=== PATIENT | female | born 1985 | race Caucasian/White ===

== ENCOUNTER 2020-03-19 12:30 | Observation (INO) | payer OTHER ==
[2020-03-19 13:22] VITALS: BP 159/105
[2020-03-19] MEDS ORDERED: BETAMETHASONE SOLUSPAN 6 MG/ML 5 ML VIAL IM ONE (13:30)
[2020-03-19] MEDS ORDERED: NIFEdipine 10 MG CAPSULE PO ONE ×3 (13:45→16:30)
[2020-03-19] MEDS ORDERED: NIFE60TA85 PO (13:54)
[2020-03-19] MEDS ORDERED: PREN-134 PO (13:54)
[2020-03-19] MEDS ORDERED: METHY250 PO (13:54)
[2020-03-19] MEDS ORDERED: DOXY1TAB3 PO (13:54)
[2020-03-19 14:08] LABS: BASOPHILS % (AUTO) 0.4 % (0.0-2.0); EOSINOPHILS % (AUTO) 0.2 % (1.0-6.0); HEMATOCRIT 32.2 % (36-46); HEMOGLOBIN 11.4 g/dL (12.0-16.0); LYMPHOCYTES % (AUTO) 20.7 % (22.0-44.0); MEAN CORPUSCULAR HEMOGLOBIN 32.5 pg (26.0-34.0); MEAN CORPUSCULAR HGB CONC 35.4 G/dL (31.0-37.0); MEAN CORPUSCULAR VOLUME 92 fL (80-100); MONOCYTES # (AUTO) 0.8 K/uL (0.1-1.0); MONOCYTES % (AUTO) 7.8 % (2.0-9.0); NEUTROPHILS % (AUTO) 70.9 % (40.0-70.0); PLATELET COUNT (AUTO)-OB 177 K/uL (150-450); RED BLOOD CELL COUNT(AUTO) 3.51 MIL/uL (4.00-5.20)
[2020-03-19 14:20] LABS: ANION GAP 5 mmol/L (8-16); CALCIUM, TOTAL 8.3 mg/dL (8.8-10.5); CARBON DIOXIDE 24 mmol/L (22-29); CHLORIDE 101 mmol/L (98-107); CREATININE 0.84 mg/dL (0.60-1.30); GLOMERULAR FILTR. RATE CALC > 60 mL/min (>60); GLUCOSE,RANDOM 97 mg/dL (70-110); POTASSIUM 4.3 mmol/L (3.5-5.1); SODIUM SERUM 130 mmol/L (136-145); UREA NITROGEN, BLOOD 19 mg/dL (7-18)
[2020-03-19 14:26] LABS: ALANINE AMINOTRANSFERASE 63 U/L (12-78); ALBUMIN 1.8 g/dL (3.4-5.0); ALKALINE PHOSPHATASE 227 U/L (46-116); ASPARTATE AMINOTRANSFERASE 55 U/L (15-37); BILIRUBIN,TOTAL 0.2 mg/dL (0.1-1.0); TOTAL PROTEIN, SERUM 6.2 g/dL (6.4-8.2)
[2020-03-19] MEDS: DEXTROSE 5%-LACTATED RINGERS 1,000 ML IV SCH ×2 (14:39→21:29)
[2020-03-19 15:20] LABS: CREATININE,URINE RANDOM 67.2 mg/dL (30.0-125.0)
[2020-03-19] MEDS ORDERED: LABETALOL HCL 5 MG/ML 20 ML VIAL IVP STA (15:42)
[2020-03-19] MEDS ORDERED: CALCIUM GLUCONATE 100 MG/ML 10 ML IVP PRN (16:45)
[2020-03-19] MEDS ORDERED: MAGNESIUM SULFATE 500 ML IV SCH (16:45)
[2020-03-19] MEDS: NIFEdipine 10 MG CAPSULE PO SCH ×3 (19:02→23:56)
[2020-03-19] MEDS: METHYLDOPA 250 MG TABLET PO SCH (19:39)
[2020-03-19] MEDS ORDERED: ACETAMINOPHEN 500 MG TABLET PO ONE (20:30)
[2020-03-20] MEDS: METHYLDOPA 250 MG TABLET PO SCH ×2 (01:13→12:16)
[2020-03-20] MEDS: NIFEdipine 10 MG CAPSULE PO SCH ×2 (02:09→04:05)
[2020-03-20 05:44] LABS: BASOPHILS % (AUTO) 0.1 % (0.0-2.0); EOSINOPHILS % (AUTO) 0 % (1.0-6.0); HEMATOCRIT 33.1 % (36-46); HEMOGLOBIN 11.6 g/dL (12.0-16.0); LYMPHOCYTES # (AUTO) 1.7 K/uL (1.0-4.8); LYMPHOCYTES % (AUTO) 11.9 % (22.0-44.0); MEAN CORPUSCULAR HEMOGLOBIN 32.2 pg (26.0-34.0); MEAN CORPUSCULAR VOLUME 92 fL (80-100); MONOCYTES # (AUTO) 0.4 K/uL (0.1-1.0); MONOCYTES % (AUTO) 2.8 % (2.0-9.0); NEUTROPHILS # (AUTO) 12.4 K/uL (1.8-7.7); PLATELET COUNT (AUTO)-OB 188 K/uL (150-450); RED CELL DISTRIBUTION WIDTH 14.4 % (11.5-14.5)
[2020-03-20] MEDS ORDERED: LABETALOL HCL 5 MG/ML 20 ML VIAL IVP ONE (06:00)
[2020-03-20 06:02] LABS: NEUTROPHILS % (AUTO) 85.2 % (40.0-70.0)
[2020-03-20 06:17] VITALS: BP 147/92
[2020-03-20 06:30] LABS: D-DIMER 2.35 mg/L FEU (0.00-0.50); INR 0.9 (0.9-1.1); PROTHROMBIN TIME 9.4 SEC (9.4-11.6)
[2020-03-20 06:34] LABS: ALANINE AMINOTRANSFERASE 62 U/L (12-78); ALKALINE PHOSPHATASE 229 U/L (46-116); ANION GAP 9 mmol/L (8-16); ASPARTATE AMINOTRANSFERASE 55 U/L (15-37); BILIRUBIN,TOTAL 0.2 mg/dL (0.1-1.0); CALCIUM, TOTAL 8.3 mg/dL (8.8-10.5); CARBON DIOXIDE 21 mmol/L (22-29); CHLORIDE 102 mmol/L (98-107); CREATININE 0.86 mg/dL (0.60-1.30); GLOMERULAR FILTR. RATE CALC > 60 mL/min (>60); GLUCOSE,RANDOM 136 mg/dL (70-110); POTASSIUM 5.3 mmol/L (3.5-5.1); SODIUM SERUM 132 mmol/L (136-145); TOTAL PROTEIN, SERUM 6.4 g/dL (6.4-8.2); UREA NITROGEN, BLOOD 19 mg/dL (7-18); URIC ACID 7.9 mg/dL (2.6-7.2)
[2020-03-20] MEDS: DEXTROSE 5%-LACTATED RINGERS 1,000 ML IV SCH (07:42)
[2020-03-20] MEDS ORDERED: BETAMETHASONE SOLUSPAN 6 MG/ML 5 ML VIAL IM ONE (08:00)
[2020-03-20] MEDS ORDERED: NIFEdipine 60 MG ER TABLET PO SCH (09:00)
[2020-03-20] MEDS ORDERED: LABETALOL HCL 200 MG TABLET PO ONE (10:30)
[2020-03-21 00:47] LABS: COLLECTION TIME,URINE 24 HR
[2020-03-21 00:57] LABS: TPROTEIN TIMED,URINE 300 mg/dL; TPROTEIN URINE, 24HRS COLL 6300 mg/24Hr (0-165)
== END 2020-03-20 13:35 | disposition home or self-care (01) ==
LOC: 4S 12:30
PROVIDERS: ADMIT Obstetrics & Gynecology; ATTEND Obstetrics & Gynecology
DX: Z03.818 Encounter for observation for suspected exposure to other biological agents ruled out (principal); O16.3 Unspecified maternal hypertension, third trimester; O14.93 Unspecified pre-eclampsia, third trimester; Z3A.28 28 weeks gestation of pregnancy
CPT/HCPCS: 36415 ×2; 76811; 80053 ×2; 81001; 81050; 82570; 83735; 84156 ×2; 84550 ×2; 85025 ×2; 85379; 85384; 85610; 85730; 87086; 87635; 96365; 96366 ×2; 96372 ×2; 96375; 96376; G0378; J0702 ×2; J3475; J3490 ×2; X7700 ×2

== ENCOUNTER 2020-03-26 14:05 | Inpatient (IN) | payer OTHER ==
[~2020-03-26] VITALS: Ht 161 cm; Wt 65.3 kg
[~2020-03-26 14:05] MED LIST: DOXY1TAB3 PO; METHY250 PO; NIFE60TA85 PO; PREN-134 PO
[2020-03-26] MEDS ORDERED: BETAMETHASONE SOLUSPAN 6 MG/ML 5 ML VIAL IM ONE (15:00)
[2020-03-26 15:07] LABS: BASOPHILS % (AUTO) 0.7 % (0.0-2.0); EOSINOPHILS % (AUTO) 0.3 % (1.0-6.0); HEMATOCRIT 30.3 % (36-46); HEMOGLOBIN 10.4 g/dL (12.0-16.0); LYMPHOCYTES # (AUTO) 2.7 K/uL (1.0-4.8); LYMPHOCYTES % (AUTO) 22.9 % (22.0-44.0); MEAN CORPUSCULAR HEMOGLOBIN 31.6 pg (26.0-34.0); MEAN CORPUSCULAR HGB CONC 34.3 G/dL (31.0-37.0); MEAN CORPUSCULAR VOLUME 92 fL (80-100); MONOCYTES % (AUTO) 8.3 % (2.0-9.0); NEUTROPHILS # (AUTO) 7.9 K/uL (1.8-7.7); NEUTROPHILS % (AUTO) 67.8 % (40.0-70.0); PLATELET COUNT (AUTO) 204 K/uL (150-450); RED BLOOD CELL COUNT(AUTO) 3.29 MIL/uL (4.00-5.20); RED CELL DISTRIBUTION WIDTH 14.3 % (11.5-14.5)
[2020-03-26 15:16] LABS: ANION GAP 10 mmol/L (8-16); CALCIUM, TOTAL 7.8 mg/dL (8.8-10.5); CARBON DIOXIDE 22 mmol/L (22-29); CHLORIDE 106 mmol/L (98-107); CREATININE 0.88 mg/dL (0.60-1.30); GLOMERULAR FILTR. RATE CALC > 60 mL/min (>60); GLUCOSE,RANDOM 86 mg/dL (70-110); POTASSIUM 4.6 mmol/L (3.5-5.1); SODIUM SERUM 138 mmol/L (136-145); UREA NITROGEN, BLOOD 29 mg/dL (7-18)
[2020-03-26 15:22] LABS: ALANINE AMINOTRANSFERASE 52 U/L (12-78); ALBUMIN 1.8 g/dL (3.4-5.0); ALKALINE PHOSPHATASE 203 U/L (46-116); ASPARTATE AMINOTRANSFERASE 54 U/L (15-37); BILIRUBIN,TOTAL 0.2 mg/dL (0.1-1.0); TOTAL PROTEIN, SERUM 5.8 g/dL (6.4-8.2); URIC ACID 10.3 mg/dL (2.6-7.2)
[2020-03-26 16:00] LABS: D-DIMER 3.28 mg/L FEU (0.00-0.50); INR 0.9 (0.9-1.1); PROTHROMBIN TIME 9.3 SEC (9.4-11.6)
[2020-03-26 16:15] LABS: PLATELET MORPHOLOGY COMMENT LARGE PLTS PRESENT
[2020-03-26] MEDS ORDERED: LABETALOL HCL 5 MG/ML 20 ML VIAL IVP ONE ×4 (16:45→18:15)
[2020-03-26] MEDS ORDERED: DEXTROSE 5%-0.2% SODIUM CHL 1,000 ML IV SCH (17:00)
[2020-03-26] MEDS ORDERED: CALCIUM GLUCONATE 100 MG/ML 10 ML IVP PRN (17:00)
[2020-03-26] MEDS ORDERED: RINGERS SOLUTION,LACTATED 1,000 ML IV PRN (17:00)
[2020-03-26] MEDS ORDERED: CITRIC ACID/SODIUM CITRATE 30 ML SOLUTION UDCUP PO PRN (17:00)
[2020-03-26] MEDS ORDERED: METOCLOPRAMIDE HCL 5 MG/ML 2 ML VIAL IVP PRN (17:00)
[2020-03-26] MEDS ORDERED: MAGNESIUM SULFATE 4 GM/WATER 100 ML IV ONE (17:00)
[2020-03-26] MEDS ORDERED: METHYLDOPA 250 MG TABLET PO SCH (18:00)
[2020-03-26] MEDS ORDERED: LABETALOL HCL 200 MG TABLET PO SCH ×2 (18:00→21:00)
[2020-03-26] MEDS: LABETALOL HCL 5 MG/ML 20 ML VIAL IVP ONE ×2 (18:02→18:24)
[2020-03-26] MEDS: MAGNESIUM SULFATE 500 ML IV SCH (18:16)
[2020-03-26] MEDS ORDERED: NIFEdipine 60 MG ER TABLET PO SCH (18:30)
[2020-03-26] MEDS ORDERED: HydrALAZINE HCL 20 MG/ML VIAL IVP ONE ×4 (19:00→23:00)
[2020-03-26] MEDS ORDERED: OXYGEN THERAPY IH SCH (20:00)
[2020-03-26] MEDS ORDERED: LABE200T5 PO (20:44)
[2020-03-26 21:58] VITALS: BP 152/68
[2020-03-27] MEDS: DEXTROSE 5%-0.45% SODIUM CHL 1,000 ML IV SCH ×3 (01:03→21:18)
[2020-03-27] MEDS ORDERED: HydrALAZINE HCL 20 MG/ML VIAL IVP ONE ×3 (02:30→08:45)
[2020-03-27 06:44] LABS: BASOPHILS % (AUTO) 0.1 % (0.0-2.0); EOSINOPHILS % (AUTO) 0.1 % (1.0-6.0); HEMATOCRIT 34.9 % (36-46); HEMOGLOBIN 11.4 g/dL (12.0-16.0); LYMPHOCYTES # (AUTO) 2.1 K/uL (1.0-4.8); LYMPHOCYTES % (AUTO) 11.9 % (22.0-44.0); MEAN CORPUSCULAR HEMOGLOBIN 30.5 pg (26.0-34.0); MEAN CORPUSCULAR HGB CONC 32.8 G/dL (31.0-37.0); MEAN CORPUSCULAR VOLUME 93 fL (80-100); MONOCYTES # (AUTO) 0.5 K/uL (0.1-1.0); MONOCYTES % (AUTO) 2.8 % (2.0-9.0); NEUTROPHILS # (AUTO) 15.1 K/uL (1.8-7.7); NEUTROPHILS % (AUTO) 85.1 % (40.0-70.0); PLATELET COUNT (AUTO)-OB 223 K/uL (150-450); RED BLOOD CELL COUNT(AUTO) 3.75 MIL/uL (4.00-5.20); RED CELL DISTRIBUTION WIDTH 14.2 % (11.5-14.5)
[2020-03-27 07:18] LABS: ALANINE AMINOTRANSFERASE 58 U/L (12-78); ALBUMIN 1.9 g/dL (3.4-5.0); ALKALINE PHOSPHATASE 224 U/L (46-116); ANION GAP 13 mmol/L (8-16); ASPARTATE AMINOTRANSFERASE 59 U/L (15-37); BILIRUBIN,TOTAL 0.2 mg/dL (0.1-1.0); CALCIUM, TOTAL 7.4 mg/dL (8.8-10.5); CARBON DIOXIDE 17 mmol/L (22-29); CHLORIDE 102 mmol/L (98-107); CREATININE 0.96 mg/dL (0.60-1.30); GLOMERULAR FILTR. RATE CALC > 60 mL/min (>60); GLUCOSE,RANDOM 129 mg/dL (70-110); POTASSIUM 4.7 mmol/L (3.5-5.1); SODIUM SERUM 132 mmol/L (136-145); TOTAL PROTEIN, SERUM 6.4 g/dL (6.4-8.2); UREA NITROGEN, BLOOD 25 mg/dL (7-18)
[2020-03-27 07:28] LABS: URIC ACID 10.6 mg/dL (2.6-7.2)
[2020-03-27] MEDS ORDERED: LABETALOL HCL 5 MG/ML 20 ML VIAL IVP ONE (07:30)
[2020-03-27] MEDS: MAGNESIUM SULFATE 500 ML IV SCH ×2 (08:54→16:04)
[2020-03-27] MEDS ORDERED: FentaNYL CITRATE-PF 100 MCG/2 ML VIAL ONE (10:24)
[2020-03-27] MEDS ORDERED: BUPIVACAINE HCL/DEX-WATER/PF 0.75% 2 ML AMP ONE (10:24)
[2020-03-27] MEDS ORDERED: MORPHINE SULFATE/PF 0.5 MG/ML 10 ML AMP ONE (10:24)
[2020-03-27] MEDS ORDERED: ACETAMINOPHEN 1000 MG/ISO-OSM 100 ML IV ONE (10:24)
[2020-03-27] MEDS ORDERED: ONDANSETRON HCL 4 MG/2 ML VIAL IVP PRN ×2 (11:30→11:45)
[2020-03-27] MEDS ORDERED: DiphenhydrAMINE HCL 50 MG/ML VIAL IVP PRN ×2 (11:30→11:45)
[2020-03-27] MEDS ORDERED: NALOXONE HCL 0.4 MG/ML VIAL IVP PRN (11:45)
[2020-03-27] MEDS ORDERED: MORPHINE SULFATE 10 MG/ML SYRINGE IVP PRN (11:45)
[2020-03-27] MEDS ORDERED: FentaNYL CITRATE-PF 100 MCG/2 ML VIAL IVP PRN (11:45)
[2020-03-27] MEDS ORDERED: ACETAMINOPHEN/CODEINE 300-30 MG TABLET PO PRN (12:15)
[2020-03-27] MEDS ORDERED: LANOLIN 7 GM OINTMENT TP PRN (12:15)
[2020-03-27] MEDS ORDERED: DiphenhydrAMINE HCL 50 MG/ML VIAL ONE (12:50)
[2020-03-27] MEDS ORDERED: DEXTROSE 5%-0.45% SODIUM CHL 1,000 ML IV ONE (12:51)
[2020-03-27] MEDS ORDERED: MAGNESIUM SULFATE 2 GM/WATER 50 ML IV ONE (14:45)
[2020-03-27] MEDS: LABETALOL HCL 5 MG/ML 20 ML VIAL IVP SCH ×3 (17:19→23:16)
[2020-03-27] MEDS: ACETAMINOPHEN 1000 MG/ISO-OSM 100 ML IV SCH ×2 (17:39→23:22)
[2020-03-27] MEDS ORDERED: OXYGEN THERAPY IH SCH ×3 (20:00)
[2020-03-27 20:04] LABS: BASOPHILS % (AUTO) 0.2 % (0.0-2.0); EOSINOPHILS % (AUTO) 0 % (1.0-6.0); HEMATOCRIT 34.5 % (36-46); HEMOGLOBIN 11.5 g/dL (12.0-16.0); LYMPHOCYTES # (AUTO) 1.9 K/uL (1.0-4.8); MEAN CORPUSCULAR HEMOGLOBIN 31.1 pg (26.0-34.0); MEAN CORPUSCULAR HGB CONC 33.4 G/dL (31.0-37.0); MEAN CORPUSCULAR VOLUME 93 fL (80-100); MONOCYTES # (AUTO) 1.5 K/uL (0.1-1.0); MONOCYTES % (AUTO) 7.4 % (2.0-9.0); NEUTROPHILS # (AUTO) 17.3 K/uL (1.8-7.7); NEUTROPHILS % (AUTO) 83.4 % (40.0-70.0); PLATELET COUNT (AUTO)-OB 217 K/uL (150-450); RED CELL DISTRIBUTION WIDTH 14.5 % (11.5-14.5)
[2020-03-27] MEDS: HydrALAZINE HCL 20 MG/ML VIAL IVP PRN (22:35)
[2020-03-28] MEDS: DEXTROSE 5%-0.45% SODIUM CHL 1,000 ML IV SCH ×3 (01:14→08:35)
[2020-03-28] MEDS: LABETALOL HCL 5 MG/ML 20 ML VIAL IVP SCH ×4 (01:28→10:05)
[2020-03-28] MEDS: IBUPROFEN 800 MG TABLET PO SCH ×3 (06:32→18:20)
[2020-03-28] MEDS ORDERED: EPHEDrine SULFATE 50 MG/ML VIAL IM ONE (06:39)
[2020-03-28] MEDS ORDERED: OXYTOCIN 10 UNITS/ML VIAL IM ONE (06:39)
[2020-03-28] MEDS ORDERED: 0.9% SODIUM CHLORIDE 10 ML VIAL IVP ONE (06:39)
[2020-03-28] MEDS: HydrALAZINE HCL 20 MG/ML VIAL IVP PRN ×2 (06:45→11:57)
[2020-03-28 07:47] LABS: BASOPHILS % (AUTO) 0.3 % (0.0-2.0); EOSINOPHILS % (AUTO) 0.1 % (1.0-6.0); HEMATOCRIT 31.7 % (36-46); HEMOGLOBIN 10.3 g/dL (12.0-16.0); LYMPHOCYTES % (AUTO) 8.6 % (22.0-44.0); MEAN CORPUSCULAR HEMOGLOBIN 30.5 pg (26.0-34.0); MEAN CORPUSCULAR HGB CONC 32.6 G/dL (31.0-37.0); MEAN CORPUSCULAR VOLUME 94 fL (80-100); MONOCYTES # (AUTO) 1.3 K/uL (0.1-1.0); MONOCYTES % (AUTO) 5.6 % (2.0-9.0); NEUTROPHILS # (AUTO) 19.8 K/uL (1.8-7.7); PLATELET COUNT (AUTO)-OB 213 K/uL (150-450); RED BLOOD CELL COUNT(AUTO) 3.39 MIL/uL (4.00-5.20); RED CELL DISTRIBUTION WIDTH 14.5 % (11.5-14.5)
[2020-03-28] MEDS ORDERED: NIFEdipine 60 MG ER TABLET PO SCH (08:00)
[2020-03-28 08:01] LABS: NEUTROPHILS % (AUTO) 85.4 % (40.0-70.0)
[2020-03-28] MEDS: NIFEdipine 60 MG ER TABLET PO SCH ×2 (08:46→21:57)
[2020-03-28] MEDS: MAGNESIUM HYDROXIDE SUSPENSION 30 ML UDCUP PO SCH ×2 (09:01→20:57)
[2020-03-28 10:05] VITALS: BP 141/93
[2020-03-28] MEDS: LABETALOL HCL 200 MG TABLET PO SCH ×2 (11:55→20:11)
[2020-03-28] MEDS ORDERED: BISACODYL 10 MG RECTAL RECTAL SUPPOSITORY PR PRN (16:45)
[2020-03-29] MEDS: LABETALOL HCL 200 MG TABLET PO SCH ×3 (04:11→21:29)
[2020-03-29] MEDS: IBUPROFEN 800 MG TABLET PO SCH ×2 (05:58→21:29)
[2020-03-29] MEDS: NIFEdipine 60 MG ER TABLET PO SCH ×3 (08:53→17:40)
[2020-03-29] MEDS: MAGNESIUM HYDROXIDE SUSPENSION 30 ML UDCUP PO SCH ×2 (08:53→21:00)
[2020-03-29] MEDS: ACETAMINOPHEN/CODEINE 300-30 MG TABLET PO PRN ×2 (08:54→23:28)
[2020-03-29 19:16] LABS: BASOPHILS % (AUTO) 0.2 % (0.0-2.0); EOSINOPHILS % (AUTO) 0.1 % (1.0-6.0); HEMATOCRIT 29.7 % (36-46); LYMPHOCYTES # (AUTO) 3.3 K/uL (1.0-4.8); LYMPHOCYTES % (AUTO) 17.1 % (22.0-44.0); MEAN CORPUSCULAR HEMOGLOBIN 31.1 pg (26.0-34.0); MEAN CORPUSCULAR HGB CONC 33.5 G/dL (31.0-37.0); MEAN CORPUSCULAR VOLUME 93 fL (80-100); MONOCYTES # (AUTO) 1.5 K/uL (0.1-1.0); MONOCYTES % (AUTO) 7.7 % (2.0-9.0); NEUTROPHILS # (AUTO) 14.3 K/uL (1.8-7.7); NEUTROPHILS % (AUTO) 74.9 % (40.0-70.0); PLATELET COUNT (AUTO)-OB 239 K/uL (150-450); RED CELL DISTRIBUTION WIDTH 14.7 % (11.5-14.5)
[2020-03-30] MEDS: IBUPROFEN 800 MG TABLET PO SCH (03:30)
[2020-03-30] MEDS: LABETALOL HCL 200 MG TABLET PO SCH ×2 (04:37→12:32)
[2020-03-30] MEDS: NIFEdipine 60 MG ER TABLET PO SCH (08:49)
[2020-03-30 09:42] LABS: BASOPHILS % (AUTO) 0.4 % (0.0-2.0); EOSINOPHILS % (AUTO) 0.4 % (1.0-6.0); HEMATOCRIT 31.4 % (36-46); HEMOGLOBIN 10.5 g/dL (12.0-16.0); LYMPHOCYTES # (AUTO) 3.5 K/uL (1.0-4.8); LYMPHOCYTES % (AUTO) 19.6 % (22.0-44.0); MEAN CORPUSCULAR HEMOGLOBIN 31.3 pg (26.0-34.0); MEAN CORPUSCULAR HGB CONC 33.4 G/dL (31.0-37.0); MEAN CORPUSCULAR VOLUME 94 fL (80-100); MONOCYTES # (AUTO) 1.1 K/uL (0.1-1.0); NEUTROPHILS % (AUTO) 73.6 % (40.0-70.0); PLATELET COUNT (AUTO)-OB 248 K/uL (150-450); RED BLOOD CELL COUNT(AUTO) 3.35 MIL/uL (4.00-5.20); RED CELL DISTRIBUTION WIDTH 14.8 % (11.5-14.5)
[2020-03-30 09:58] LABS: ALANINE AMINOTRANSFERASE 74 U/L (12-78); ALBUMIN 1.6 g/dL (3.4-5.0); ALKALINE PHOSPHATASE 201 U/L (46-116); ANION GAP 7 mmol/L (8-16); ASPARTATE AMINOTRANSFERASE 82 U/L (15-37); BILIRUBIN,TOTAL 0.2 mg/dL (0.1-1.0); CALCIUM, TOTAL 7.4 mg/dL (8.8-10.5); CARBON DIOXIDE 26 mmol/L (22-29); CHLORIDE 104 mmol/L (98-107); CREATININE 0.64 mg/dL (0.60-1.30); GLOMERULAR FILTR. RATE CALC > 60 mL/min (>60); GLUCOSE,RANDOM 122 mg/dL (70-110); POTASSIUM 3.9 mmol/L (3.5-5.1); SODIUM SERUM 137 mmol/L (136-145); TOTAL PROTEIN, SERUM 5.8 g/dL (6.4-8.2); UREA NITROGEN, BLOOD 16 mg/dL (7-18); URIC ACID 7.4 mg/dL (2.6-7.2)
[2020-03-30] MEDS ORDERED: IBUP-2071 PO (10:24)
[2020-03-30] MEDS ORDERED: FERR-89 PO (10:27)
[2020-03-30] MEDS ORDERED: NIFE-39 PO (10:29)
== END 2020-03-30 12:50 | disposition home or self-care (01) | DRG 783 ==
LOC: 4S 14:05 → OBSVTOIN 14:05 → 4S 19:52
PROVIDERS: ADMIT Obstetrics & Gynecology; ATTEND Obstetrics & Gynecology
PROC: 10D00Z1 Extraction of Products of Conception, Low, Open Approach (ICD-10-PCS; principal; 2020-03-27)
PROC: 0UB70ZZ Excision of Bilateral Fallopian Tubes, Open Approach (ICD-10-PCS; 2020-03-27)
DX: O34.211 Maternal care for low transverse scar from previous cesarean delivery (principal); O60.14X0 Preterm labor third trimester with preterm delivery third trimester, not applicable or unspecified; O13.4 Gestational [pregnancy-induced] hypertension without significant proteinuria, complicating childbirth; O76 Abnormality in fetal heart rate and rhythm complicating labor and delivery; Z3A.29 29 weeks gestation of pregnancy; Z37.0 Single live birth
CPT/HCPCS: 83735; 84550; 85379; 85384; 86850; 86900; 86901; 86923; 87081; 88302; J0131; J0360; J0690; J0702; J1200; J2274; J2590; J2765; J3010; J3475; J3490; J7120